=== PATIENT | male | born 1945 | race Caucasian/White ===

== ENCOUNTER 2017-01-13 05:58 | Day surgery (SDC) | payer MEDICARE ==
[~2017-01-13] VITALS: Ht 182.9 cm; Wt 83.9 kg
[~2017-01-13 05:58] MED LIST: LIPITOR40 M1 PO; LISINOPRIL10 MG PO; MELOXICAM15 MG PO; METFORMIN850 MG PO; NAPRELAN500 MG PO; PRILOSEC20 MG PO; [UNRECOGNIZED DRUG - REMARK]
[2017-01-13 08:41] VITALS: BP 134/66
== END 2017-01-13 08:27 | disposition home or self-care (01) ==
LOC: ENDO 05:58 → ORM 05:58
PROVIDERS: ATTEND Internal Medicine Gastroenterology
PROC: 0DB38ZX Excision of Lower Esophagus, Via Natural or Artificial Opening Endoscopic, Diagnostic (ICD-10-PCS; principal; 2017-01-13)
DX: K21.9 Gastro-esophageal reflux disease without esophagitis (principal); R63.4 Abnormal weight loss; K29.70 Gastritis, unspecified, without bleeding; K44.9 Diaphragmatic hernia without obstruction or gangrene; K29.50 Unspecified chronic gastritis without bleeding; I10 Essential (primary) hypertension; E11.9 Type 2 diabetes mellitus without complications; E78.00 Pure hypercholesterolemia, unspecified; Z87.898 Personal history of other specified conditions; Z86.010 Personal history of colon polyps